=== PATIENT | male | born 1995 | race Caucasian/White ===

== ENCOUNTER 2018-10-10 01:55 | Emergency (ER) | payer MEDICAID ==
[~2018-10-10] VITALS: Ht 165.1 cm; Wt 77.3 kg
[~2018-10-10 01:55] MED LIST: FLUT1DIS INH
[2018-10-10 02:00] VITALS: BP 146/88
[2018-10-10] MEDS ORDERED: ipratropium/albuterol 3ml nebule NEB ONE (02:00)
[2018-10-10] MEDS ORDERED: predniSONE 20 mg tablet PO ONE (02:05)
[2018-10-10] MEDS ORDERED: ALBU8.5H8 IH (02:24)
[2018-10-10] MEDS ORDERED: PRED10TA23 PO (02:24)
== END 2018-10-10 02:38 | disposition home or self-care (01) ==
LOC: ER 01:56
DX: J45.901 Unspecified asthma with (acute) exacerbation (principal); Z79.899 Other long term (current) drug therapy
CPT/HCPCS: 94640; 94760; 99283; J7512

== ENCOUNTER 2019-10-31 05:56 | Emergency (ER) | payer MEDICAID ==
[~2019-10-31] VITALS: Ht 165.1 cm; Wt 68.2 kg
[~2019-10-31 05:56] MED LIST changes: +ALBU8.5H8 IH
[2019-10-31] MEDS ORDERED: ipratropium/albuterol 3ml nebule NEB ONE (06:00)
[2019-10-31] MEDS ORDERED: predniSONE 20 mg tablet PO ONE (06:00)
[2019-10-31] MEDS ORDERED: albuterol 2.5 MG/3 ML nebule NEB ONE (06:35)
[2019-10-31] MEDS ORDERED: albuterol 2.5 MG/3 ML nebule ONE (06:39)
--- NOTE | 2019-10-31 07:06 | NUR ---
weaned pt. off o2, sats on room air are 93%.
[2019-10-31] MEDS ORDERED: albuterol 2.5 MG/3 ML nebule CONTNEB PRN (07:20)
--- NOTE | 2019-10-31 07:44 | NUR ---
pt. on RA o2 saturation was 87-89%. placed him back on 2L N/C on 91%. titrated back up to 3L and pt's o2 sats are 93%
[2019-10-31] MEDS ORDERED: PRED20TA PO (09:19)
[2019-10-31 09:30] VITALS: BP 116/76
== END 2019-10-31 09:31 | disposition home or self-care (01) ==
LOC: ER 05:57
DX: J45.909 Unspecified asthma, uncomplicated (principal); F12.90 Cannabis use, unspecified, uncomplicated; Z79.899 Other long term (current) drug therapy
CPT/HCPCS: 94640; 94644; 99285; J7512; 94760